=== PATIENT | male | born 1975 | race African-American/Black ===

== ENCOUNTER → 2016-07-12 | Day surgery (SDC) | payer OTHER ==
[~2016-07-12] MED LIST: ALLEGRA ALLERGY60 MG PO; GABAPENTIN300 M2 PO; GABAPENTIN400 MG PO; LORTAB 10-3251 EACH PO; LORTAB 10/500 T1 TAB PO; MOBIC15 MG PO; NEURONTIN PO; ROBITUSSIN ALL118 ML; ZANTAC150 M1 PO
--- NOTE | ~2016-07-12 | OR ---
Unit #: [id number] #: [id number] Patient: GAB ADAM [id number] [address] [place], [place] [address] [id number] O MR#: [id number] NAME: GAB ADAM ROOM: Date of Procedure: 07/12/2016 Admission Date: 07/12/2016 Surgeon: Santy Chambers M.D. : 1975 Attending Physician: Santy Chambers M.D. OPERATIVE REPORT PREOPERATIVE DIAGNOSES Back pain, radiculopathy, degenerative disk disease and spondylolisthesis. POSTOPERATIVE DIAGNOSES Back pain, radiculopathy, degenerative disk disease and spondylolisthesis. PROCEDURE PERFORMED Lumbar epidural steroid injection with fluoroscopic guidance for needle localization. INDICATIONS FOR PROCEDURE The patient is a 40-year-old male with chronic back and right lower extremity pain following a work injury. He has right-sided disc bulge with annular tear and spondylolisthesis at the L5-S1 level, which was consistent with his pathology. He is treated medically, which helped some with 40% to 50% of his pain. In the past, he had done very well with epidural steroids as well. Radicular component has flared significantly, so plan is to repeat epidural steroid injection today. DESCRIPTION OF PROCEDURE The patient was placed in a seated position. Standard monitors were applied. Sterile prep and drape of the lumbar area was performed. The skin then at the L5 level was localized with 1% lidocaine. An 18-gauge ZIRXtead needle was then advanced via loss of resistance technique and fluoroscopic guidance in toward the epidural space. After confirming proper positioning with fluoroscopy and radiographic contrast, 80 mg of Depo-Medrol and 4 mL of 0.125% bupivacaine were deposited. The patient tolerated the procedure otherwise well and was discharged to recovery room in stable condition. Dictated by... Arti Serrano/evelin TD: 07/12/2016 13:10 JOB #: [id number] Unit #: [id number] #: [id number] Patient: GAB ADAM OPERATIVE REPORT Page 1 of 1 X Santy Chambers MD X PROCEDURE OPERATIVE NOTE
== END | disposition home or self-care (01) ==
LOC: CCSC 10:00
DX: G89.29 Other chronic pain (principal); M51.17 Intervertebral disc disorders with radiculopathy, lumbosacral region; M54.5 Low back pain; M43.17 Spondylolisthesis, lumbosacral region; Z88.1 Allergy status to other antibiotic agents; Z88.2 Allergy status to sulfonamides; Z79.899 Other long term (current) drug therapy
CPT/HCPCS: J1040; J2250

== ENCOUNTER → 2016-08-30 | Day surgery (SDC) | payer OTHER ==
--- NOTE | ~2016-08-30 | OR ---
Unit #: [id number] #: [id number] Patient: GAB ADAM [id number] [address] [place], [place] [address] [id number] O MR#: [id number] NAME: GAB ADAM ROOM: Date of Procedure: 08/30/2016 Admission Date: 08/30/2016 Surgeon: Santy Chambers M.D. : 1975 Attending Physician: Santy Chambers M.D. Primary Care Physician: Primary Care Physician No OPERATIVE REPORT PREOPERATIVE DIAGNOSES Back pain, radiculopathy, spondylolisthesis, herniated nucleus pulposus. POSTOPERATIVE DIAGNOSES Back pain, radiculopathy, spondylolisthesis, herniated nucleus pulposus. PROCEDURE PERFORMED Lumbar epidural steroid injection with fluoroscopic guidance for needle localization. INDICATIONS FOR PROCEDURE The patient is a 40-year-old male with back and right lower extremity pain. He has right-sided disk herniation, annular tear, and spondylolisthesis at the L5-S1 level. In the past, he had done very well with epidural steroid injections, gotten over 50% improvement in his symptom complex. Repeat injection about 6 to 7 weeks ago. This did help, but did not last long as that he had in the past. Plan is to repeat injection at this point to see if we can do a second injection in the near future to see if this will last him longer. DESCRIPTION OF PROCEDURE The patient was placed in a seated position. Standard monitors were applied. Sterile prep and drape of the lumbar area was performed. The skin at the L5 level was localized with 1% lidocaine. An 18-gauge H-art (WPP)tead needle was then advanced via loss of resistance technique and fluoroscopic guidance in toward the epidural space. After confirming proper positioning with fluoroscopy and radiographic contrast, 80 mg of Depo-Medrol and 4 mL of 0.125% bupivacaine were deposited. The patient tolerated the procedure otherwise well and was discharged to recovery room in stable condition. Dictated by... Santy Chambers M.D. LHP/modl TD: 08/30/2016 14:46 JOB #: [id number] Unit #: [id number] #: [id number] Patient: GAB ADAM OPERATIVE REPORT Page 1 of 1 X Santy Chambers MD X PROCEDURE OPERATIVE NOTE
== END | disposition home or self-care (01) ==
LOC: CCSC 10:49
DX: M51.16 Intervertebral disc disorders with radiculopathy, lumbar region (principal); M43.17 Spondylolisthesis, lumbosacral region; Z88.2 Allergy status to sulfonamides; Z88.1 Allergy status to other antibiotic agents; Z79.891 Long term (current) use of opiate analgesic; Z79.899 Other long term (current) drug therapy
CPT/HCPCS: J1040; J2250